=== PATIENT | female | born 1980 | race American Indian/Alaskan Native ===

== ENCOUNTER 2019-02-20 15:20 | Emergency (ER) | payer OTHER ==
[2019-02-20 16:36] VITALS: BP 118/75
[2019-02-20] MEDS ORDERED: PROVENTIL IH ONE (16:37)
--- NOTE | 2019-02-20 16:37 | Emergency Department Report ---
Chief Complaint: Chest Pain Stated Complaint: 16 WEEKS /CHEST PAIN Time Seen by Provider: 02/20/19 16:35 - HPI History of Present Illness: FE DUE AUG 13 PMH ASTHMA G1 CARE NO CIG RX NONE MSE COMPLETED MSE screening note: Focused history and physical exam performed. Due to findings the following was ordered: ED Disposition for MSE Condition: Stable
--- NOTE | 2019-02-20 19:41 | Emergency Department Report ---
ED Asthma HPI - General Chief Complaint: Chest Pain Stated Complaint: 16 WEEKS /CHEST PAIN Time Seen by Provider: 02/20/19 16:35 Source: patient Mode of arrival: Ambulatory Limitations: No Limitations - History of Present Illness Initial Comments: Patient is a A0 38-year-old Chinese female with a history of asthma and is approximately 16 weeks gestation and presents to the ED with complaint of acute onset persistent shortness of breath, dry cough, chest tightness and wheezing for the last 6 hours. Patient states that she ran out of her albuterol inhaler at home. Patient states that the wheezing and cough of increasing persistent and worsening last 2 hours. Patient denies dizziness, fever, chills, abdominal pain, vaginal bleeding, chest pain, sore throat, nasal and sinus congestion and back pain, dysuria or urinary frequency and urgency and vaginal discharge. MD Complaint: "asthma attack", shortness of breath, wheezing -: Sudden, hour(s) (6), This morning Asthma History: childhood onset, other (Occasional asthma attacks) Severity: moderate Context: recent URI, ran out of meds, allergen exposure Associated Symptoms: dry cough, chest pain (tightness). denies: productive co ugh, hemoptysis, leg edema, syncope Treatments Prior to Arrival: inhaled bronchodilator - Related Data Current Asthma Therapy: inhaled bronchodilator Previous Rx's Medication Instructions Recorded Last Taken Type ALBUTEROL NEB's [Proventil 0.083% 2.5 mg INHALATION Q4H PRN #75 ml 02/20/19 Unknown Rx NEBS] Allergies Allergy/AdvReac Type Severity Reaction Status Date / Time No Known Allergies Allergy Unverified 02/20/19 15:26 ED Review of Systems ROS: Stated complaint: 16 WEEKS /CHEST PAIN Other details as noted in HPI Comment: All other systems reviewed and negative Constitutional: no symptoms reported, see HPI. denies: chills, diaphoresis, fever, malaise Eyes: as per HPI. denies: eye pain, eye discharge, vision change ENT: as per HPI, congestion. denies: ear pain, throat pain, dental pain, hearing loss Respiratory: no symptoms reported, see HPI, cough, shortness of breath, wheezing. denies: orthopnea, SOB at rest Cardiovascular: as per HPI, chest pain (tightness). denies: palpitations, dyspnea on exertion, edema, syncope, paroxysmal nocturnal dyspnea Endocrine: no symptoms reported, see HPI. denies: excessive sweating, flushing, increased thirst, increased urine Gastrointestinal: as per HPI. denies: abdominal pain, nausea, constipation, hematochezia Genitourinary: as per HPI. denies: urgency, dysuria, frequency, hematuria, abnormal menses, dyspareunia Musculoskeletal: as per HPI. denies: back pain, joint swelling, arthralgia Skin: as per HPI. denies: rash, lesions, change in color, change in hair/nails Neurological: as per HPI. denies: headache, weakness, numbness, paresthesias Psychiatric: as per HPI Hematological/Lymphatic: as per HPI ED Past Medical Hx - Past Medical History Previous Medical History?: Yes Hx Asthma: Yes - Surgical History Past Surgical History?: No - Social History Smoking Status: Never Smoker - Medications Home Medications: Home Medications Medication Instructions Recorded Confirmed Last Taken Type ALBUTEROL NEB's [Proventil 0.083% 2.5 mg INHALATION Q4H PRN #75 ml 02/20/19 Unknown Rx NEBS] ED Physical Exam - General Limitations: No Limitations General appearance: alert, in no apparent distress - Head Head exam: Present: atraumatic, normocephalic, normal inspection - Eye Eye exam: Present: normal appearance, PERRL, EOMI. Absent: scleral icterus, conjunctival injection, nystagmus - ENT ENT exam: Present: normal exam, normal orophraynx, mucous membranes moist, TM's normal bilaterally, normal external ear exam - Neck Neck exam: Present: normal inspection. Absent: tenderness, full ROM, lymphadenopathy - Respiratory Respiratory exam: Present: wheezes. Absent: respiratory distress, rales, rhonchi, chest wall tenderness, accessory muscle use, decreased breath sounds, prolonged expiratory - Cardiovascular Cardiovascular Exam: Present: regular rate, normal rhythm, normal heart sounds - GI/Abdominal GI/Abdominal exam: Present: soft, normal bowel sounds. Absent: distended, hyperactive bowel sounds, hypoactive bowel sounds, organomegaly - Rectal Rectal exam: Present: deferred - Extremities Exam Extremities exam: Present: normal inspection, full ROM, normal capillary refill - Back Exam Back exam: Present: normal inspection, full ROM. Absent: tenderness, CVA tenderness (R), CVA tenderness (L), muscle spasm, paraspinal tenderness, vertebral tenderness - Neurological Exam Neurological exam: Present: alert, oriented X3, CN II-XII intact, normal gait, reflexes normal - Psychiatric Psychiatric exam: Present: normal affect - Skin Skin exam: Present: warm, dry, intact, normal color ED Course Vital Signs 02/20/19 02/20/19 16:34 17:12 Temperature 98.3 F Pulse Rate 90 Pulse Rate [ 75 Throughout] Respiratory 20 Rate Respiratory 18 Rate [ Throughout] Blood Pressure 118/75 [Right] O2 Sat by Pulse 100 Oximetry - Reevaluation(s) Reevaluation #1: 02/20/19 19:43 Patient is alert and oriented 3 and is not in distress with normal vital signs. The oxygen saturation is 100% in room air. Patient received albuterol nebulizer treatment in the ED. Patient also received Solu-Medrol 125 mg intramuscular injection. On reevaluation, patient's wheezing has resolved and patient feeling much better. Patient discharged home on medications with the another prescription for albuterol inhaler and advised to follow up with her primary care physician in 2 days for reevaluation or return to the ED immediately if symptoms get worse. ED Medical Decision Making - Medical Decision Making Patient had presented to the ED with acute exacerbation of her chronic asthma with shortness of breath. Patient was treated with albuterol nebulizer and Solu-Medrol injection. Patient is alert and oriented 3 and is not in any distress with a normal white signs, and oxygen saturation of 100% in room air. Patient's wheezing has resolved with treatment. Patient discharged home on a prescription for albuterol inhaler and advised to follow-up with her primary care physician in 2-3 days for reevaluation or return to the ED immediately if symptoms get worse. - Differential Diagnosis Asthma exacerbation, asthmatic bronchitis, URI with cough Critical care attestation.: If time is entered above; I have spent that time in minutes in the direct care of this critically ill patient, excluding procedure time. ED Disposition Clinical Impression: Shortness of breath Acute asthma exacerbation Qualifiers: Asthma severity: mild Asthma persistence: intermittent Qualified Code(s): J45.21 - Mild intermittent asthma with (acute) exacerbation Disposition: TO HOME OR SELFCARE Is pt being admited?: No Does the pt Need Aspirin: No Condition: Stable Instructions: Asthma (ED), Dyspnea (ED), Reactive Airways Disease (ED) Additional Instructions: Use your medications as needed, follow up with your primary care physician in 2- 3 days for reevaluation. Return to the ED immediately if symptoms get worse. Prescriptions: ALBUTEROL NEB's [Proventil 0.083% NEBS] 2.5 mg INHALATION Q4H PRN #75 ml PRN Reason: Dyspnea Referrals: RIP TAVERAS MD [Primary Care Provider] - 3-5 Days Time of Disposition: 19:52 Print Language: MOLDOVAN
[2019-02-20] MEDS ORDERED: SOLU-Medrol IM ONE (19:43)
== END 2019-02-20 20:31 | disposition home or self-care (01) ==
LOC: ED 15:20
DX: O99.512 Diseases of the respiratory system complicating pregnancy, second trimester (principal); J45.901 Unspecified asthma with (acute) exacerbation; Z3A.16 16 weeks gestation of pregnancy
CPT/HCPCS: 93005; 93010; 94640; 96372; 99282; J2930